=== PATIENT | female | born 2000 | race Hispanic/Latino ===

== ENCOUNTER 2023-02-21 08:22 | Inpatient (IN) | payer OTHER ==
[2023-02-25] MEDS ORDERED: Lidocaine 1% (PF) 30 ML VIAL SC PRN (06:18)
[2023-02-25] MEDS ORDERED: fentaNYL 50 mcg/mL 1 mL Vial SLOW IVP PRN (06:18)
[2023-02-25] MEDS ORDERED: Methylergonovine 0.2 MG/ML VIAL IM PRN (06:18)
[2023-02-25] MEDS ORDERED: Tranexamic Acid 1,000 MG/10 ML VIAL IVP PRN (06:18)
[2023-02-25] MEDS ORDERED: Misoprostol 200 MCG TAB PR PRN (06:18)
[2023-02-25] MEDS ORDERED: hydrALAZINE 20 MG/ML VIAL SLOW IVP PRN (06:18)
[2023-02-25] MEDS ORDERED: HYDROcodone/Acetaminophen 5/325 mg Tablet PO PRN (06:18)
[2023-02-25] MEDS ORDERED: Promethazine HCl 25 MG/ML VIAL IM PRN ×3 (06:18→20:59)
[2023-02-25] MEDS ORDERED: Diphenoxylate HCl/Atropine Tablet PO PRN (06:18)
[2023-02-25] MEDS ORDERED: Carboprost 250 MCG/ML AMP IM PRN (06:18)
[2023-02-25] MEDS ORDERED: Ibuprofen 800 MG TAB PO PRN (06:18)
[2023-02-25] MEDS ORDERED: Acetaminophen 500 MG TAB PO PRN (06:18)
[2023-02-25] MEDS ORDERED: NS w/ Oxytocin 30 units 500 ML IV SCH ×3 (06:18)
[2023-02-25] MEDS ORDERED: Ondansetron PF 4 MG/2 ML Vial IVP PRN ×3 (06:18→20:59)
[2023-02-25 06:35] VITALS: BMI 24.5
[2023-02-25] MEDS: Lactated Ringer's 1,000 ML IV SCH ×4 (07:30→18:24)
[2023-02-25 07:53] LABS: Hemoglobin 13.1 g/dL (12.0-15.5); Mean Corpuscular HGB CONC 33.9 g/dL (32.0-36.0); Mean Corpuscular Hemoglobin 30.8 pg (27.0-33.0); Mean Corpuscular Volume 90.8 fl (81.6-98.3); Mean Platelet Volume 11.7 fl (7.4-10.4); Platelet Count 165 10x3/uL (150-450); RBC Distribution Width 14.5 % (11.5-14.5); Red Blood Cell (RBC) Count 4.26 10x6/uL (3.90-5.03); White Blood Cell (WBC) Count 5.6 10x3/uL (3.5-10.5)
[2023-02-25] MEDS: Misoprostol 100 MCG TAB VAG SCH (07:54)
[2023-02-25] MEDS ORDERED: Terbutaline Sulfate 1 MG/ML VIAL ONE (08:00)
[2023-02-25] MEDS ORDERED: Bupivacaine 0.25% HCL 30 ML VIAL ONE (08:00)
[2023-02-25 08:25] LABS: HBSAg Index 0.19 S/CO (0-0.99); Hep B Surf Ag - L&D Non-Reactive S/CO (NonReactive)
[2023-02-25 08:26] LABS: Syphilis Antibody Nonreactive (Nonreactive); Syphilis Antibody Index 0.05 S/CO (<1.00 Non-Reactive)
[2023-02-25] MEDS ORDERED: fentaNYL/Ropivacaine Epidural 100 ML ONE (13:37)
[2023-02-25] MEDS ORDERED: Moisturizing Cream (Eucerin) 113 GM JAR TOP PRN ×2 (14:16→20:59)
[2023-02-25] MEDS ORDERED: Naloxone HCl 0.4 mg/ml Vial IVP PRN ×4 (14:16→20:59)
[2023-02-25] MEDS ORDERED: diphenhydrAMINE 50 MG/ML VIAL IVP PRN ×2 (14:16→20:59)
[2023-02-25] MEDS ORDERED: Lactated Ringer's 500 ML IV PRN (14:16)
[2023-02-25] MEDS ORDERED: Acetaminophen 325 MG TAB PO PRN (14:16)
[2023-02-25] MEDS ORDERED: ePHEDrine Sulfate 50 MG/10 ML VIAL SLOW IVP PRN (14:16)
[2023-02-25] MEDS ORDERED: fentaNYL 2 mcg/Ropivacaine 0.2% Epidural 100 ML CADD EPIDURAL SCH (14:30)
[2023-02-25] MEDS ORDERED: Communication Order-Pharmacy FS SCH ×2 (14:30→21:00)
[2023-02-25] MEDS ORDERED: PHENYLEPHRINE-NS 100 MCG/ML 10 ML SYRINGE ONE ×2 (15:27→20:03)
[2023-02-25] MEDS ORDERED: Terbutaline Sulfate 1 MG/ML VIAL SC SCH (17:15)
[2023-02-25] MEDS ORDERED: CEFAZOLIN 2 GM VIAL ONE (20:01)
[2023-02-25] MEDS ORDERED: Azithromycin 500 MG VIAL ONE (20:01)
[2023-02-25] MEDS ORDERED: Famotidine/PF 20 mg/2ml Vial ONE (20:01)
[2023-02-25] MEDS ORDERED: Chloroprocaine 3% PF 20 ML VIAL ONE (20:02)
[2023-02-25] MEDS ORDERED: Ondansetron PF 4 MG/2 ML Vial ONE (20:03)
[2023-02-25] MEDS ORDERED: Morphine PF 10 MG/10 ML VIAL ONE (20:13)
[2023-02-25] MEDS ORDERED: Oxytocin 10 UNITS/ML VIAL ONE (20:26)
[2023-02-25] MEDS ORDERED: KETAMINE 100 MG/ML (5ML VIAL) ONE (20:26)
[2023-02-25] MEDS ORDERED: Promethazine HCl 25 MG/ML VIAL ONE (20:29)
[2023-02-25] MEDS ORDERED: Metoclopramide HCl 10 MG/2 ML VIAL ONE (20:29)
[2023-02-25 20:45] LABS: pH (Cord, venous) 7.356 (7.250-7.350)
[2023-02-25] MEDS ORDERED: Ondansetron HCl/PF 4 MG/2 ML Vial IVP PRN (20:59)
[2023-02-25] MEDS ORDERED: Fentanyl 100 MCG/2 ML VIAL SLOW IVP PRN (20:59)
[2023-02-25] MEDS ORDERED: Meperidine HCl/PF 25 MG/ML VIAL SLOW IVP PRN (20:59)
[2023-02-25] MEDS ORDERED: Promethazine HCl 25 MG SUPP PR PRN (20:59)
[2023-02-25] MEDS ORDERED: Naloxone HCl 0.4 mg/ml Vial IV PRN (20:59)
[2023-02-25] MEDS ORDERED: Ketorolac Tromethamine 30 MG/ML VIAL IVP SCH (21:00)
[2023-02-25] MEDS: Ketorolac Tromethamine 30 MG/ML VIAL IVP PRN (21:38)
[2023-02-26] MEDS ORDERED: Ondansetron PF 4 MG/2 ML Vial IVP PRN (00:54)
[2023-02-26] MEDS ORDERED: Boostrix 0.5 ML (Tdap) VIAL (>/=7 yrs of age) IM ONE (00:54)
[2023-02-26] MEDS ORDERED: Bisacodyl 10 MG SUPP PR PRN (00:54)
[2023-02-26] MEDS ORDERED: diphenhydrAMINE 25 MG CAP PO PRN (00:54)
[2023-02-26] MEDS ORDERED: Promethazine HCl 25 MG/ML VIAL IM PRN (00:54)
[2023-02-26] MEDS ORDERED: hydrALAZINE 20 MG/ML VIAL SLOW IVP PRN (00:54)
[2023-02-26] MEDS ORDERED: Simethicone Chewable 80 MG TAB PO PRN (00:54)
[2023-02-26] MEDS ORDERED: Lanolin Ointment 7 GM TUBE TOP PRN (00:54)
[2023-02-26] MEDS: Ketorolac Tromethamine 30 MG/ML VIAL IVP PRN ×3 (04:00→16:28)
[2023-02-26] MEDS ORDERED: Docusate 100 MG CAP PO SCH ×2 (04:00→09:00)
[2023-02-26] MEDS ORDERED: Ferrous Sulfate 325 MG TAB PO SCH ×2 (04:00→09:00)
[2023-02-26] MEDS: Misoprostol 100 MCG TAB VAG SCH (07:14)
[2023-02-26] MEDS: Lactated Ringer's 1,000 ML IV SCH (07:24)
[2023-02-26 07:31] LABS: Hemoglobin 9.5 g/dL (12.0-15.5); Mean Corpuscular HGB CONC 33.3 g/dL (32.0-36.0); Mean Corpuscular Hemoglobin 30.5 pg (27.0-33.0); Mean Corpuscular Volume 91.6 fl (81.6-98.3); Mean Platelet Volume 11.5 fl (7.4-10.4); Platelet Count 130 10x3/uL (150-450); RBC Distribution Width 14.6 % (11.5-14.5); Red Blood Cell (RBC) Count 3.11 10x6/uL (3.90-5.03); White Blood Cell (WBC) Count 10.1 10x3/uL (3.5-10.5)
[2023-02-26] MEDS: Prenatal Vitamin 1 TAB PO SCH (08:05)
[2023-02-26] MEDS ORDERED: HYDROcodone/Acetaminophen 5/325 mg Tablet PO PRN (09:00)
[2023-02-26] MEDS: HYDROcodone/Acetaminophen 5/325 mg Tablet PO PRN ×3 (09:21→19:18)
[2023-02-26] MEDS: Docusate 100 MG CAP PO SCH (22:12)
[2023-02-26] MEDS: Ibuprofen 800 MG TAB PO SCH (22:12)
[2023-02-26] MEDS: Ferrous Sulfate 325 MG TAB PO SCH (22:13)
[2023-02-27] MEDS: Ibuprofen 800 MG TAB PO SCH ×3 (05:36→21:57)
[2023-02-27] MEDS: Prenatal Vitamin 1 TAB PO SCH (08:18)
[2023-02-27] MEDS: Ferrous Sulfate 325 MG TAB PO SCH ×2 (08:18→21:57)
[2023-02-27] MEDS: Docusate 100 MG CAP PO SCH ×2 (08:18→21:58)
[2023-02-27] MEDS: HYDROcodone/Acetaminophen 5/325 mg Tablet PO PRN ×2 (10:16→15:30)
[2023-02-28] MEDS: HYDROcodone/Acetaminophen 5/325 mg Tablet PO PRN (01:31)
[2023-02-28] MEDS: Ibuprofen 800 MG TAB PO SCH ×2 (05:51→14:49)
[2023-02-28] MEDS: Prenatal Vitamin 1 TAB PO SCH (08:00)
[2023-02-28] MEDS: Docusate 100 MG CAP PO SCH (08:00)
[2023-02-28] MEDS: Ferrous Sulfate 325 MG TAB PO SCH (08:00)
[2023-02-28 08:04] VITALS: BP 103/65; TEMP 98.4
== END 2023-02-28 16:00 | disposition home or self-care (01) | DRG 788 ==
LOC: CSHLD 02-25 05:53 → CSHPP 02-25 23:40
PROVIDERS: ADMIT Family Medicine; ATTEND Family Medicine
PROC: 10D00Z1 Extraction of Products of Conception, Low, Open Approach (ICD-10-PCS; principal; 2023-02-25)
PROC: 10907ZC Drainage of Amniotic Fluid, Therapeutic from Products of Conception, Via Natural or Artificial Opening (ICD-10-PCS; 2023-02-25)
PROC: 3E0P7VZ Introduction of Hormone into Female Reproductive, Via Natural or Artificial Opening (ICD-10-PCS; 2023-02-25)
PROC: 10H07YZ Insertion of Other Device into Products of Conception, Via Natural or Artificial Opening (ICD-10-PCS; 2023-02-25)
PROC: 4A133R1 Monitoring of Arterial Saturation, Peripheral, Percutaneous Approach (ICD-10-PCS; 2023-02-25)
PROC: 3E0P05Z Introduction of Adhesion Barrier into Female Reproductive, Open Approach (ICD-10-PCS; 2023-02-25)
DX: O48.0 Post-term pregnancy (principal); Z3A.40 40 weeks gestation of pregnancy; Z37.0 Single live birth; O76 Abnormality in fetal heart rate and rhythm complicating labor and delivery
CPT/HCPCS: 36415; 51702; 82805; 85027; 86780; 86850; 86900; 86901; 87340; J1885; J2274; J2401; J2405; J2550; J2590; J2765; J3105; J7120; S0020; S0028